=== PATIENT | male | born 1965 | race Caucasian/White ===

== ENCOUNTER 2017-05-30 22:14 | Emergency (ER) | payer OTHER ==
[~2017-05-30] VITALS: Ht 177.8 cm; Wt 95.7 kg
[2017-05-30 22:20] VITALS: TEMP 36.4; Ht 177.8 cm; Wt 95.7 kg
[2017-05-30] MEDS ORDERED: ONDANSETRON INJ 2 MG/ML 2 ML VIAL IV STA (22:54)
[2017-05-30] MEDS ORDERED: SODIUM CHLORIDE 0.9% 1000ML 1,000 ML IV STA (22:54)
[2017-05-30] MEDS ORDERED: MoRPHine SULFATE 4 MG/ML 1 ML CARP\\VIAL IV PRN (23:00)
[2017-05-30 23:07] LABS: BASO % 0.3 %; BASO ABS # 0.04 K/uL (0-0.2); COMPLETE YES; EOS % 1.6 %; HEMATOCRIT 43.6 % (42-52); IG% 0.3 %; LYMPH % 35.8 %; LYMPH ABS # 4.18 K/uL (1.2-3.4); MEAN CELL VOLUME 88.1 fL (80-100); MEAN CORPUSCULAR HEMOGLOBIN 30.5 pg (25-34); MEAN CORPUSCULAR HGB CONC 34.6 g/dl (32-36); MEAN PLATELET VOLUME 9.3 fL (7.4-10.4); MONO % 9.8 %; NEUT % 52.2 %; PLATELET COUNT 287 K/uL (130-400); RED BLOOD COUNT 4.95 M/uL (4.7-6.1); WHITE BLOOD COUNT 11.68 K/uL (4.8-10.8)
[2017-05-30 23:22] LABS: CREATININE 0.89 mg/dl (0.60-1.40)
[2017-05-30 23:31] LABS: MANUAL MICROSCOPIC REQUIRED? YES; URINE APPEARANCE CLOUDY (CLEAR); URINE BILIRUBIN NEG (NEG); URINE COLOR RED; URINE NITRITE NEG (NEG); URINE PH 5.5 (4.5-7.5); URINE SPECIFIC GRAVITY >= 1.030 (1.000-1.030); UROBILINOGEN NEG (NEG)
[2017-05-30 23:39] LABS: REVIEW REQ? NO
[2017-05-30 23:43] LABS: URINE BACTERIA 1+ (NEG); URINE RBC >30 /hpf (0-4)
--- NOTE | 2017-05-31 00:05 | EMERGENCY ROOM VISIT NOTE ---
History Report prepared by Jose: Rick Og Under the Supervision of: Dr. Kathryn Mcbride D.O. First contact with patient: 23:03 Chief Complaint: HEMATURIA Stated Complaint: PAIN IN LOWER BACK, BLOOD IN URINE Nursing Triage Summary: patient reports outpatient treatment for hematuria and flank pain, states "they thought it was a UTI but the culture came back negative, I had an US but they didn't see anything. I seemed to get better and then tonight it came back really badly." History of Present Illness The patient is a 52 year old male who presents to the Emergency Room with complaints of intermittent hematuria that started about 6 days ago. He states that he woke up 6 days ago with an urgency to urinate. The patient states that he was able to only urinate a "dribble" and felt unsatisfied following the incident. He reports that the frequent urgency persisted, which caused him to urinate around 0900 when he noticed his urine was shanice colored. The patient states that he went to urgent care and gave a urine sample, which was still shanice colored. He states that the results showed abnormal white blood cell and protein levels. The patient states he was discharged with a prescription of Bactrim to treat his condition as a UTI. He reports that about four days ago, urgent care called him telling him there was not antibiotic infection and told him to discontinue his medication. The patient reports that he felt fine all weekend until three days ago when he started to experience nausea and clamminess , resulting in an episode of vomiting. He states that two hours following this incident, he felt normal again. The patient states that he went to visit his doctor the next day to give him a sample of his urine, and his urine showed no signs of hematuria. He states that he had an ultrasound done, which showed no signs of bladder, kidney, or prostates issues. The patient states that the doctor noticed steatosis of his liver, but was not worried and discharged the patient.. He states that that he felt fine until earlier today when he was experiencing an urgency to urinate again on a mile walk after dinner. The patient states that he returned home to urinate and noticed it was shanice color again. He states that he also started to experienced sharp left CVA pain during his urination, which prompted him to visit the ED. The patient admits that he has a family history of bladder cancer. He denies any heart problems. Source of History: patient Onset: 6 days ago Position: other (global) Symptom Intensity: 06/07 Timing: intermittent Associated Symptoms: + nausea, + vomiting, + urinary symptoms Review of Systems See HPI for pertinent positives & negatives. A total of 10 systems reviewed and were otherwise negative. Past Medical & Surgical None Family History FH: bladder cancer Social History Smoking Status: Never Smoker Marital Status: Housing Status: lives with significant other Current/Historical Medications No Active Prescriptions or Reported Meds Allergies Coded Allergies: No Known Allergies (Unverified , 05/30/17) Physical Exam Vital Signs Date Time Temp Pulse Resp B/P (MAP) Pulse Ox O2 Delivery O2 Flow Rate FiO2 05/31/17 01:38 77 18 121/89 99 05/31/17 00:29 70 16 132/90 98 Room Air 05/30/17 22:20 36.4 66 16 142/97 98 Room Air Physical Exam HEENT: Head - normocephalic and atraumatic Pupils are equal, round, and reactive to light. Extraocular eye muscles are intact, and sclera are anicteric. Nose - moist nasal mucosa without discharge. Mouth - moist buccal mucosa. Oropharynx is nonerythematous and there is no tonsillar exudate or edema noted. Neck: Supple; no JVD, nuchal rigidity, cervical lymphadenopathy, or auscultated bruits. Heart: Regular rate and rhythm. There is a normal S1 and S2 with no murmurs, clicks, or gallops appreciated. Lungs: Clear to auscultation bilaterally with no wheezes, rales, or rhonchi. Abdomen: Soft, completely nontender, nondistended, with good bowel sounds. There are no palpable pulsatile masses or hepatosplenomegaly. There is no guarding, rigidity, or rebound noted. Extremities: No evidence of cyanosis, clubbing, or edema. There are easily palpable peripheral pulses. Skin: warm and dry with good turgor and no rashes. Medical Decision & Procedures ER Provider Diagnostic Interpretation: Radiology results as stated below per my review and the radiologist's interpretation: CT ABDOMEN & PELVIS: 4 mm stone in left distal ureter with mild obstructive changes. Unremarkable appendix. Radiologist: Amy Orellana M.D. Laboratory Results 05/30/17 22:35 Red Blood Count 4.95, Mean Corpuscular Volume 88.1, Mean Corpuscular Hemoglobin 30.5, Mean Corpuscular Hemoglobin Concent 34.6, Mean Platelet Volume 9.3, Neutrophils (%) (Auto) 52.2, Lymphocytes (%) (Auto) 35.8, Monocytes (%) (Auto) 9.8, Eosinophils (%) (Auto) 1.6, Basophils (%) (Auto) 0.3, Neutrophils # (Auto) 6.10, Lymphocytes # (Auto) 4.18, Monocytes # (Auto) 1.14, Eosinophils # (Auto) 0.19, Basophils # (Auto) 0.04 05/30/17 22:35 Test 05/30/17 22:30 05/30/17 22:35 Urine Color RED Urine Appearance CLOUDY (CLEAR) Urine pH 5.5 (4.5-7.5) Urine Specific [place] >= 1.030 (1.000-1.030) Urine Protein 2+ (NEG) Urine Glucose (UA) NEG (NEG) Urine Ketones TRACE (NEG) Urine Occult Blood 3+ (NEG) Urine Nitrite NEG (NEG) Urine Bilirubin NEG (NEG) Urine Urobilinogen NEG (NEG) Urine Leukocyte Esterase NEG (NEG) Urine RBC >30 /hpf (0-4) Urine WBC 5-10 /hpf (0-5) Urine Epithelial Cells 0-5 /lpf (0-5) Urine Bacteria 1+ (NEG) White Blood Count 11.68 K/uL (4.8-10.8) Red Blood Count 4.95 M/uL (4.7-6.1) Hemoglobin 15.1 g/dL (14.0-18.0) Hematocrit 43.6 % (42-52) Mean Corpuscular Volume 88.1 fL (80-100) Mean Corpuscular Hemoglobin 30.5 pg (25-34) Mean Corpuscular Hemoglobin Concent 34.6 g/dl (32-36) Platelet Count 287 K/uL (130-400) Mean Platelet Volume 9.3 fL (7.4-10.4) Neutrophils (%) (Auto) 52.2 % Lymphocytes (%) (Auto) 35.8 % Monocytes (%) (Auto) 9.8 % Eosinophils (%) (Auto) 1.6 % Basophils (%) (Auto) 0.3 % Neutrophils # (Auto) 6.10 K/uL (1.4-6.5) Lymphocytes # (Auto) 4.18 K/uL (1.2-3.4) Monocytes # (Auto) 1.14 K/uL (0.11-0.59) Eosinophils # (Auto) 0.19 K/uL (0-0.5) Basophils # (Auto) 0.04 K/uL (0-0.2) RDW Standard Deviation 41.9 fL (36.4-46.3) RDW Coefficient of Variation 13.1 % (11.5-14.5) Immature Granulocyte % (Auto) 0.3 % Immature Granulocyte # (Auto) 0.03 K/uL (0.00-0.02) Anion Gap 5.0 mmol/L (3-11) Est Creatinine Clear Calc Drug Dose 112.7 ml/min Estimated GFR () 113.9 Estimated GFR (Non- 98.3 BUN/Creatinine Ratio 17.0 (10-20) Calcium Level 9.0 mg/dl (8.5-10.1) Total Bilirubin 0.7 mg/dl (0.2-1) Direct Bilirubin 0.1 mg/dl (0-0.2) Aspartate Amino Transf (AST/SGOT) 18 U/L (15-37) Alanine Aminotransferase (ALT/SGPT) 28 U/L (12-78) Alkaline Phosphatase 96 U/L (45-117) Total Protein 6.6 gm/dl (6.4-8.2) Albumin 3.8 gm/dl (3.4-5.0) Lipase 159 U/L (73-393) Laboratory results per my review. Medications Administered Medications (Trade) Dose Ordered Sig/Osvaldo Route Start Time Stop Time Status Last Admin Dose Admin Sodium Chloride 1,000 ml @ 999 mls/hr Q1H1M STAT IV 05/30/17 22:54 05/30/17 23:54 DC 05/30/17 23:09 999 MLS/HR Ondansetron HCl (Zofran Inj) 4 mg NOW STAT IV 05/30/17 22:54 05/30/17 22:55 DC 05/30/17 23:08 4 MG Morphine Sulfate (MoRPHine SULFATE INJ) 4 mg Q15M PRN IV 05/30/17 23:00 05/31/17 01:45 DC 05/30/17 23:09 4 MG Procedure Zofran Injection 4 mg IV, Sodium Chloride 1000 ml @ 999 mls/hr IV, Morphine Sulfate 4 mg IV, Oxycodone/Acetaminophen 1 homepack PO. ED Course 2254: Zofran Injection 4 mg IV, Sodium Chloride 1000 ml @ 999 mls/hr IV. 2300: Morphine Sulfate 4 mg IV. 2318: Past medical records reviewed. The patient was evaluated in room A12B. A complete history and physical exam was performed. The patient went for CT scan of the abdomen/pelvis to rule out a ureteral stone. 0115: Oxycodone/Acetaminophen 1 homepack PO. 0120: Upon reevaluation, the patient is resting comfortably. I discussed findings and results with the patient. He verbalized agreement of the treatment plan. The patient was discharged home. Medical Decision The patient is a 52 year old male who presents to the ED with complaints of intermittent hematuria that started about 6 days ago. Differential diagnosis includes pyelonephritis, cystitis, hematuria, uretal colic. Lab results show: Mild leukocytosis 11.06. Stable H&H Normal renal function and glucose. Normal LFTs and lipase. Urine has 2+ protein 3+ blood 1+ bacteria > 30 RBCs 5-10 WBCs The patient presents to the emergency department with left flank pain that was severe and radiated into the left testicle. CT scan of the abdomen/pelvis shows a 4 mm distal left ureteral stone with some mild signs of hydronephrosis. I reviewed these findings with the patient and his . He was given Percocet to use at home and will follow-up with urology if the pain is not subsiding. Symptoms worsen such as vomiting, fever or worsening pain, they're to return to the emergency department. Medication Reconcilliation Current Medication List: was personally reviewed by me Blood Pressure Screening Patient's blood pressure: Elevated blood pressure Blood pressure disposition: Elevated BP felt to be situational Impression Primary Impression: Left ureteral calculus Scribe Attestation The scribe's documentation has been prepared under my direction and personally reviewed by me in its entirety. I confirm that the note above accurately reflects all work, treatment, procedures, and medical decision making performed by me. Departure Information Dispostion Home / Self-Care Prescriptions No Active Prescriptions or Reported Meds Referrals Dar Tracey MD (PCP) Kayode Pires MD Forms HOME CARE DOCUMENTATION FORM, IMPORTANT VISIT INFORMATION, WORK / SCHOOL INSTRUCTIONS Patient Instructions Kidney Stones, Kidney Stones - [facility], [facility] Additional Instructions Rest. Take plenty of clear liquids Percocet - 1-2 tabs. every 4 hours for pain Return to the ER for severe pain, vomiting or fever. Strain the urine
[2017-05-31] MEDS ORDERED: PERCOCET HOME PACK PO ONE (01:15)
[2017-05-31] MEDS ORDERED: OXYC-57 PO (01:20)
[2017-05-31 01:38] VITALS: BP 121/89; PULSE 77; O2SAT 99
--- NOTE | 2017-05-31 07:17 | DIAGNOSTIC IMAGING REPORT ---
ABDOMEN AND PELVIS CT WITHOUT CONTRAST CT DOSE: 1235.38 mGy.cm HISTORY: Left flank pain. eval for left sided stone TECHNIQUE: Multiaxial CT images of the abdomen and pelvis were performed without the use of intravenous and oral contrast according to the standard department stone protocol. A dose lowering technique was utilized adhering to the principles of ALARA. COMPARISON STUDY: None. FINDINGS: A 4 mm groundglass nodule within the right middle lobe on image 12. Mild dependent changes seen within the lung bases. A 4 mm stone within the distal left ureter on image 422. This results in mild left hydronephrosis. No renal calculi. No right-sided hydronephrosis. The unenhanced liver, gallbladder, spleen, adrenal glands, and pancreas are unremarkable. No retroperitoneal lymphadenopathy. Normal bladder. No bowel wall thickening or obstruction. Normal appendix. IMPRESSION: 1. A 4 mm stone within the left distal ureter resulting in mild left hydronephrosis. 2. A 4 mm groundglass nodule within the right middle lobe. Please refer to the chart below for follow-up. Please refer to below summary of Fleischner criteria recommendations for follow-up of incidental CT nodules (Chapito Osullivan, Guidelines for management of small pulmonary nodules detected on CT scans: A statement from the Fleischner Society, Radiology 237: [phone].) SOLID NODULES Solitary nodule size: <6 mm * Low risk patients: no follow-up needed * high risk patients: optional CT at 12 months Solitary nodule size: 6-8 mm * Low risk patients: follow-up at 6-12 months, then consider further follow-up at 18-24 months * high risk patients: initial follow-up CT at 6-12 months and then at 18-24 months if no change Solitary nodule size: >8 mm * either low or high risk patients - consider follow-up CT at 3 months, and/or CT-PET, and/or biopsy Multiple nodules size: <6 mm * Low risk patients: no routine follow-up * high risk patients: optional CT at 12 months Multiple nodules size: 6-8 mm * Low risk patients: follow-up at 3-6 months, then consider further follow-up at 18-24 months * high risk patients: follow-up at 3-6 months, then at 18-24 months if no change Multiple nodules size: >8 mm * Low risk patients: follow-up at 3-6 months, then consider further follow-up at 18-24 months * high risk patients: follow-up at 3-6 months, then at 18-24 months if no change Note: newly detected indeterminate nodule in persons 35 years of age or older. * Low risk patients: minimal or absent history of smoking and/or other known risk factors * high risk patients: history of smoking or of other known risk factors (e.g. first degree relative with lung cancer, or exposure to asbestos, radon, uranium) * if a nodule up to 8 mm is partly solid or is ground glass further follow-up is required after 24 months to exclude possible slow growing adenocarcinoma (ARYA) SUBSOLID NODULES Solitary pure ground-glass nodule * nodule size <6 mm - no CT follow-up required * nodule size >=6 mm - follow-up CT at 6-12 months, then every 2 years until 5 years Solitary part-solid nodule * nodule size <6 mm - no CT follow-up required * nodule size >=6 mm - follow-up CT at 3-6 months. If unchanged, and solid component remains <6 mm, then annual follow-up for 5 years Multiple subsolid nodules * nodule size <6 mm - follow-up CT at 3-6 months, consider further follow-up at 2 and 4 years if stable * nodule size >=6 mm - follow-up CT at 3-6 months, subsequent management based on the most suspicious nodule(s) Electronically signed by: Varun Disla M.D. 05/31/2017 7:16 AM Dictated Date/Time: 05/31/2017 7:12 AM
== END 2017-05-31 01:38 | disposition home or self-care (01) ==
LOC: C.EDB 22:17 → C.EDA 05-31 01:38
DX: N20.1 Calculus of ureter (principal); Z80.52 Family history of malignant neoplasm of bladder